=== PATIENT | female | born 1960 | race Caucasian/White ===

== ENCOUNTER 2018-11-26 12:53 | Outpatient (CLI) | payer BC | END 2018-11-26 23:59 | disposition home or self-care (01) | LOC: CARD DIAG 12:53 | PROVIDERS: ATTEND Internal Medicine Cardiovascular Disease | DX: I34.8 Other nonrheumatic mitral valve disorders (principal); I48.91 Unspecified atrial fibrillation | CPT/HCPCS: 93306 ==

== ENCOUNTER 2020-11-06 15:19 | Inpatient (IN) | payer BC ==
[~2020-11-06] VITALS: Ht 170.2 cm; Wt 103.6 kg
[2020-11-06 16:14] LABS: BASOPHILS # (AUTO) 0.1 X10'3 (0-0.2); BASOPHILS % (AUTO) 0.7 % (0-1); EOSINOPHILS % (AUTO) 0.1 % (0-6); HEMATOCRIT 37.5 % (35.0-45.0); HEMOGLOBIN 12.8 g/dl (12.0-16.0); LYMPHOCYTES # (AUTO) 0.7 X10'3 (1.1-4.8); LYMPHOCYTES % (AUTO) 4.9 % (21-51); MEAN CORPUSCULAR HEMOGLOBIN 31.4 PG (27.0-31.0); MEAN CORPUSCULAR HGB CONC 34.1 g/dL (33.0-36.5); MEAN CORPUSCULAR VOLUME 92.2 FL (78-98); MEAN PLATELET VOLUME 8.3 FL (7.4-10.4); MONOCYTES # (AUTO) 0.8 X10'3 (0-0.9); MONOCYTES % (AUTO) 5.6 % (2-12); NEUTROPHILS # (AUTO) 12.4 X10'3 (1.8-7.7); NEUTROPHILS % (AUTO) 88.7 % (42-75); PLATELET COUNT 251 X10'3 (140-440); RED BLOOD COUNT 4.07 X10'6 (4.20-5.60); RED CELL DISTRIBUTION WIDTH 12.3 % (11.5-14.5); WHITE BLOOD COUNT 13.9 X10'3 (4.5-11.0)
[2020-11-06] MEDS ORDERED: diltiazem 5mg/ml 5ml inj. IV ONE ×2 (16:20→17:30)
[2020-11-06 16:25] LABS: ALANINE AMINOTRANSFERASE 33 U/L (12-78); ALBUMIN 3.1 G/DL (3.4-5.0); ALBUMIN/GLOBULIN RATIO 0.8 (1.1-1.5); ALKALINE PHOSPHATASE 89 IU/L (46-116); ANION GAP 12 (8-16); ASPARTATE AMINO TRANSFERASE 27 U/L (10-37); BILIRUBIN,TOTAL 0.5 MG/DL (0.1-1.0); BLOOD UREA NITROGEN 18 MG/DL (7-18); BUN/CREATININE RATIO 20.2 (6.6-38.0); CALCIUM 8.6 MG/DL (8.5-10.1); CHLORIDE 104 MMOL/L (99-107); CREATININE 0.89 MG/DL (0.40-0.90); GLUCOSE 125 MG/DL (70-104); POTASSIUM 4.2 MMOL/L (3.5-5.1); SODIUM 137 MMOL/L (135-145); TOTAL CARBON DIOXIDE 20.7 MMOL/L (24-32); TOTAL PROTEIN 7.2 G/DL (6.4-8.2); eGFR 64 ML/MIN
[2020-11-06 16:31] LABS: MAGNESIUM 1.8 MG/DL (1.5-2.4)
[2020-11-06] MEDS ORDERED: morphine 4 MG/ML inj SYRINge IV ONE (16:55)
[2020-11-06] MEDS ORDERED: iohexol 350MG/ML 100ml bottle IV ONE (17:02)
[2020-11-06] MEDS ORDERED: aspirin 81mg tab.chew PO ONE (17:30)
--- NOTE | 2020-11-06 18:05 | NUR ---
spoke to Dr Echevarria re: pt HR still 131, she will put in orders
--- NOTE | 2020-11-06 18:48 | NUR ---
Patient resting comfortably on gurney, reports minimal chest pain 4/10 only when she takes a deep breath.
[2020-11-06] MEDS ORDERED: OMEP20TA23 PO (19:33)
[2020-11-06] MEDS ORDERED: FOLI0.4T6 PO (19:33)
[2020-11-06] MEDS ORDERED: TRAZ-256 PO (19:33)
[2020-11-06] MEDS ORDERED: LOP12.5T PO (19:33)
[2020-11-06] MEDS ORDERED: FLEC100T35 PO (19:33)
[2020-11-06] MEDS ORDERED: ETAN50PE3 SUBCUT (19:33)
[2020-11-06] MEDS ORDERED: ESTR0.6216 PO (19:33)
[2020-11-06] MEDS ORDERED: TIZA4CAP PO (19:33)
[2020-11-06] MEDS ORDERED: METH2.5T PO (19:33)
[2020-11-06] MEDS ORDERED: APIX5TAB3 PO (19:33)
[2020-11-06] MEDS ORDERED: HYDR200T84 PO (19:33)
[2020-11-06] MEDS ORDERED: mag hydrox/Alum hydrox/simeth 30ml oral suspension PO PRN (19:55)
[2020-11-06] MEDS ORDERED: TIZANIDINE HCL PO PRN (19:55)
[2020-11-06] MEDS ORDERED: magnesium hydroxide 30ml (MOM) UD suspension PO PRN (19:55)
[2020-11-06] MEDS ORDERED: ondansetron/PF 4mg/2ml inj IV PRN (19:55)
[2020-11-06] MEDS ORDERED: potassium Cl 20 mEq SR tablet PO PRN ×2 (19:55)
[2020-11-06] MEDS ORDERED: potassium Cl 40MEQ/1/2NS 520ml 520 ML IV PRN ×2 (19:55)
[2020-11-06] MEDS: K and/or MAG REPLACEMENT MC SCH (20:00)
[2020-11-06] MEDS ORDERED: tizanidine 4mg tablet PO PRN (20:10)
[2020-11-06 21:00] VITALS: BP 106/49
[2020-11-06] MEDS: traZODone 50mg tablet PO SCH (21:31)
[2020-11-06] MEDS: hydroxychloroquine 200mg tablet PO SCH (21:32)
[2020-11-06] MEDS: diltiazem 30mg tablet PO SCH (21:33)
[2020-11-06] MEDS: apixaban 5mg tablet PO SCH (21:33)
[2020-11-06] MEDS: flecainide 50mg tablet PO SCH (21:33)
--- NOTE | 2020-11-06 23:01 | NUR ---
Patient in room PCU 3027. I have received report from Dana PEDRAZA and had the opportunity to ask questions and assume patient care.
[2020-11-07 02:00] VITALS: BP 118/54
[2020-11-07] MEDS: diltiazem 30mg tablet PO SCH ×4 (02:04→19:24)
[2020-11-07] MEDS: acetaminophen 325mg tablet PO PRN ×3 (02:10→22:09)
[2020-11-07 03:50] LABS: BASOPHILS # (AUTO) 0.1 X10'3 (0-0.2); BASOPHILS % (AUTO) 0.8 % (0-1); EOSINOPHILS # (AUTO) 0.1 X10'3 (0-0.9); EOSINOPHILS % (AUTO) 0.7 % (0-6); HEMATOCRIT 34.5 % (35.0-45.0); HEMOGLOBIN 11.7 g/dl (12.0-16.0); LYMPHOCYTES # (AUTO) 1.8 X10'3 (1.1-4.8); LYMPHOCYTES % (AUTO) 10.9 % (21-51); MEAN CORPUSCULAR HEMOGLOBIN 31.6 PG (27.0-31.0); MEAN CORPUSCULAR HGB CONC 33.8 g/dL (33.0-36.5); MEAN CORPUSCULAR VOLUME 93.4 FL (78-98); MEAN PLATELET VOLUME 8.5 FL (7.4-10.4); MONOCYTES # (AUTO) 1.4 X10'3 (0-0.9); MONOCYTES % (AUTO) 8.6 % (2-12); NEUTROPHILS # (AUTO) 12.8 X10'3 (1.8-7.7); PLATELET COUNT 217 X10'3 (140-440); RED CELL DISTRIBUTION WIDTH 12.6 % (11.5-14.5); WHITE BLOOD COUNT 16.2 X10'3 (4.5-11.0)
[2020-11-07 04:03] LABS: ALANINE AMINOTRANSFERASE 35 U/L (12-78); ALBUMIN 2.6 G/DL (3.4-5.0); ALBUMIN/GLOBULIN RATIO 0.7 (1.1-1.5); ALKALINE PHOSPHATASE 96 IU/L (46-116); ANION GAP 8 (8-16); ASPARTATE AMINO TRANSFERASE 25 U/L (10-37); BILIRUBIN,TOTAL 0.5 MG/DL (0.1-1.0); BLOOD UREA NITROGEN 16 MG/DL (7-18); BUN/CREATININE RATIO 17.6 (6.6-38.0); CALCIUM 8.2 MG/DL (8.5-10.1); CHLORIDE 105 MMOL/L (99-107); CREATININE 0.91 MG/DL (0.40-0.90); GLUCOSE 119 MG/DL (70-104); SODIUM 138 MMOL/L (135-145); TOTAL CARBON DIOXIDE 25.1 MMOL/L (24-32); TOTAL PROTEIN 6.6 G/DL (6.4-8.2); eGFR 63 ML/MIN
[2020-11-07] MEDS ORDERED: diltiazem 5mg/ml 5ml inj. IV ONE (05:25)
[2020-11-07 05:28] VITALS: BP 117/74
--- NOTE | 2020-11-07 05:45 | NUR ---
Patient converted from SR to afib RVR in the 120-140's at 0515. Notified Dr. Garcia who ordered cardizem bolus 10mg and to repeat dose in 20 minutes if heart rate above 100.
[2020-11-07] MEDS: diltiazem 5mg/ml 5ml inj. IV PRN (06:01)
--- NOTE | 2020-11-07 06:29 | NUR ---
Problems reprioritized. Patient report given, questions answered & plan of care reviewed with Jose Angel.
--- NOTE | 2020-11-07 06:30 | NUR ---
Patient in room PCU 3027. I have received report from Alpesh PEDRAZA and had the opportunity to ask questions and assume patient care.
[2020-11-07 07:00] VITALS: BP 100/76
[2020-11-07] MEDS: K and/or MAG REPLACEMENT MC SCH ×2 (08:00→19:25)
[2020-11-07] MEDS ORDERED: ETANERCEPT SQ SCH (08:00)
[2020-11-07] MEDS: apixaban 5mg tablet PO SCH ×2 (08:27→19:25)
[2020-11-07] MEDS: flecainide 50mg tablet PO SCH ×2 (08:30→19:24)
[2020-11-07] MEDS: folic acid 0.4mg tablet PO SCH (08:30)
[2020-11-07] MEDS: pantoprazole 40mg Tablet.DR PO SCH (08:30)
[2020-11-07] MEDS: metoprolol tartrate 12.5mg (1/2 tablet) PO SCH (08:31)
[2020-11-07] MEDS: hydroxychloroquine 200mg tablet PO SCH ×2 (08:31→19:24)
[2020-11-07] MEDS: estrogen, conjugated 0.625mg tablet PO SCH (08:32)
--- NOTE | 2020-11-07 10:48 | NUR ---
PAGER ID: [phone] MESSAGE: Re: PhillipRadhaa. Room: [facility]. Pt's HR is consistent in the 120-130's A-fib. -[facility] #[id number] -Dr. Franz paged concerning Pt's heart rate.
[2020-11-07 11:00] VITALS: BP 107/76
[2020-11-07] MEDS ORDERED: tizanidine 4mg tablet PO PRN (14:51)
--- NOTE | 2020-11-07 18:16 | NUR ---
Problems reprioritized. Patient report given, questions answered & plan of care reviewed with Alpesh RN.
[2020-11-07 19:00] VITALS: BP 121/52
[2020-11-07 22:00] VITALS: BP 124/60
[2020-11-07] MEDS: traZODone 50mg tablet PO SCH (22:10)
[2020-11-08 02:00] VITALS: BP 112/50
[2020-11-08] MEDS: diltiazem 30mg tablet PO SCH ×4 (02:27→20:24)
[2020-11-08 06:09] LABS: BASOPHILS # (AUTO) 0.1 X10'3 (0-0.2); BASOPHILS % (AUTO) 0.6 % (0-1); EOSINOPHILS # (AUTO) 0.3 X10'3 (0-0.9); EOSINOPHILS % (AUTO) 2.3 % (0-6); HEMATOCRIT 35.2 % (35.0-45.0); HEMOGLOBIN 11.7 g/dl (12.0-16.0); LYMPHOCYTES # (AUTO) 1.8 X10'3 (1.1-4.8); LYMPHOCYTES % (AUTO) 16.1 % (21-51); MEAN CORPUSCULAR HEMOGLOBIN 31.2 PG (27.0-31.0); MEAN CORPUSCULAR HGB CONC 33.3 g/dL (33.0-36.5); MEAN CORPUSCULAR VOLUME 93.7 FL (78-98); MEAN PLATELET VOLUME 8.8 FL (7.4-10.4); MONOCYTES # (AUTO) 1.1 X10'3 (0-0.9); MONOCYTES % (AUTO) 9.7 % (2-12); NEUTROPHILS # (AUTO) 7.9 X10'3 (1.8-7.7); NEUTROPHILS % (AUTO) 71.3 % (42-75); PLATELET COUNT 254 X10'3 (140-440); RED BLOOD COUNT 3.76 X10'6 (4.20-5.60); RED CELL DISTRIBUTION WIDTH 12.3 % (11.5-14.5); WHITE BLOOD COUNT 11.1 X10'3 (4.5-11.0)
[2020-11-08 06:30] VITALS: BP 106/40
--- NOTE | 2020-11-08 06:30 | NUR ---
Patient in room U 3027. I have received report from JORGE L PEDRAZA and had the opportunity to ask questions and assume patient care. PT SLEEPING, CALL LIGHT IN REACH. NO DISTRESS. Addendum: 11/08/20 at 0742 by Katie Reddy RN Amended: Links added.
[2020-11-08 06:34] LABS: ALANINE AMINOTRANSFERASE 37 U/L (12-78); ALBUMIN 2.6 G/DL (3.4-5.0); ALBUMIN/GLOBULIN RATIO 0.6 (1.1-1.5); ALKALINE PHOSPHATASE 96 IU/L (46-116); ANION GAP 8 (8-16); ASPARTATE AMINO TRANSFERASE 27 U/L (10-37); BILIRUBIN,TOTAL 0.5 MG/DL (0.1-1.0); BLOOD UREA NITROGEN 11 MG/DL (7-18); BUN/CREATININE RATIO 12.8 (6.6-38.0); CALCIUM 8.7 MG/DL (8.5-10.1); CHLORIDE 107 MMOL/L (99-107); CREATININE 0.86 MG/DL (0.40-0.90); GLUCOSE 111 MG/DL (70-104); POTASSIUM 3.9 MMOL/L (3.5-5.1); SODIUM 142 MMOL/L (135-145); TOTAL CARBON DIOXIDE 27.5 MMOL/L (24-32); TOTAL PROTEIN 6.8 G/DL (6.4-8.2); eGFR 67 ML/MIN
[2020-11-08] MEDS: K and/or MAG REPLACEMENT MC SCH ×2 (08:00→20:00)
[2020-11-08] MEDS: flecainide 50mg tablet PO SCH ×2 (08:00→20:26)
[2020-11-08] MEDS: apixaban 5mg tablet PO SCH ×2 (08:00→20:25)
[2020-11-08] MEDS: pantoprazole 40mg Tablet.DR PO SCH (08:01)
[2020-11-08] MEDS: estrogen, conjugated 0.625mg tablet PO SCH (08:03)
[2020-11-08] MEDS: folic acid 0.4mg tablet PO SCH (08:03)
[2020-11-08] MEDS: metoprolol tartrate 12.5mg (1/2 tablet) PO SCH (08:04)
[2020-11-08] MEDS: hydroxychloroquine 200mg tablet PO SCH ×2 (09:14→20:26)
[2020-11-08] MEDS: diltiazem 5mg/ml 5ml inj. IV PRN (09:18)
[2020-11-08 11:00] VITALS: BP 102/59
[2020-11-08] MEDS ORDERED: metoprolol tartrate 1mg/ml inj IV PRN (12:05)
[2020-11-08] MEDS ORDERED: diltiazem 5mg/ml 5ml inj. IV ONE (12:05)
[2020-11-08] MEDS ORDERED: colchicine 0.6mg tablet PO ONE (12:50)
--- NOTE | 2020-11-08 13:45 | NUR ---
Problems reprioritized. Patient report given, questions answered & plan of care reviewed with MEGHAN PEDRAZA. PT DENIES NEEDS. CALL LIGHT IN REACH Addendum: 11/08/20 at 1346 by Katie Reddy RN Amended: Links added.
[2020-11-08] MEDS ORDERED: ondansetron 4mg rapidly disintigrating tab PO PRN (14:15)
[2020-11-08 17:07] VITALS: BP 106/56
[2020-11-08 18:00] VITALS: BP 107/46
--- NOTE | 2020-11-08 18:56 | NUR ---
Patient in room PCU 3027. I have received report from KEILA Pride and had the opportunity to ask questions and assume patient care.
[2020-11-08] MEDS: traZODone 50mg tablet PO SCH (20:26)
[2020-11-08] MEDS: colchicine 0.6mg tablet PO SCH (20:30)
[2020-11-08 22:00] VITALS: BP 103/50
[2020-11-09 02:00] VITALS: BP 133/59
[2020-11-09] MEDS: diltiazem 30mg tablet PO SCH ×4 (02:18→20:48)
--- NOTE | 2020-11-09 06:39 | NUR ---
Problems reprioritized. Patient report given, questions answered & plan of care reviewed with KEILA Pride.
[2020-11-09 07:15] VITALS: BP 134/49
[2020-11-09] MEDS: K and/or MAG REPLACEMENT MC SCH ×2 (07:26→20:00)
[2020-11-09 07:37] LABS: BASOPHILS # (AUTO) 0.1 X10'3 (0-0.2); BASOPHILS % (AUTO) 0.9 % (0-1); EOSINOPHILS # (AUTO) 0.2 X10'3 (0-0.9); EOSINOPHILS % (AUTO) 1.4 % (0-6); HEMOGLOBIN 11.8 g/dl (12.0-16.0); LYMPHOCYTES # (AUTO) 1.6 X10'3 (1.1-4.8); LYMPHOCYTES % (AUTO) 13.7 % (21-51); MEAN CORPUSCULAR HEMOGLOBIN 31.5 PG (27.0-31.0); MEAN CORPUSCULAR HGB CONC 33.6 g/dL (33.0-36.5); MEAN CORPUSCULAR VOLUME 93.9 FL (78-98); MEAN PLATELET VOLUME 9.4 FL (7.4-10.4); MONOCYTES % (AUTO) 8.7 % (2-12); NEUTROPHILS # (AUTO) 8.8 X10'3 (1.8-7.7); NEUTROPHILS % (AUTO) 75.3 % (42-75); PLATELET COUNT 320 X10'3 (140-440); RED BLOOD COUNT 3.73 X10'6 (4.20-5.60); RED CELL DISTRIBUTION WIDTH 12.4 % (11.5-14.5); WHITE BLOOD COUNT 11.7 X10'3 (4.5-11.0)
[2020-11-09 08:01] LABS: ALANINE AMINOTRANSFERASE 34 U/L (12-78); ALBUMIN 2.6 G/DL (3.4-5.0); ALBUMIN/GLOBULIN RATIO 0.6 (1.1-1.5); ALKALINE PHOSPHATASE 104 IU/L (46-116); ANION GAP 10 (8-16); ASPARTATE AMINO TRANSFERASE 25 U/L (10-37); BILIRUBIN,TOTAL 0.5 MG/DL (0.1-1.0); BLOOD UREA NITROGEN 12 MG/DL (7-18); BUN/CREATININE RATIO 12.6 (6.6-38.0); CALCIUM 8.6 MG/DL (8.5-10.1); CHLORIDE 104 MMOL/L (99-107); CREATININE 0.95 MG/DL (0.40-0.90); GLUCOSE 112 MG/DL (70-104); SODIUM 140 MMOL/L (135-145); TOTAL CARBON DIOXIDE 26.5 MMOL/L (24-32); TOTAL PROTEIN 7.1 G/DL (6.4-8.2); eGFR 60 ML/MIN
[2020-11-09] MEDS: hydroxychloroquine 200mg tablet PO SCH ×2 (08:16→20:48)
[2020-11-09] MEDS: metoprolol tartrate 12.5mg (1/2 tablet) PO SCH (08:16)
[2020-11-09] MEDS: colchicine 0.6mg tablet PO SCH ×2 (08:17→20:55)
[2020-11-09] MEDS: estrogen, conjugated 0.625mg tablet PO SCH (08:17)
[2020-11-09] MEDS: folic acid 0.4mg tablet PO SCH (08:17)
[2020-11-09] MEDS: pantoprazole 40mg Tablet.DR PO SCH (08:17)
[2020-11-09] MEDS: apixaban 5mg tablet PO SCH ×2 (08:17→20:48)
[2020-11-09] MEDS: flecainide 50mg tablet PO SCH ×2 (08:17→20:48)
[2020-11-09] MEDS ORDERED: flecainide 50mg tablet PO SCH (09:43)
[2020-11-09 12:29] VITALS: BP 102/48
[2020-11-09 17:20] VITALS: BP 99/55
[2020-11-09 18:00] VITALS: BP 123/58
--- NOTE | 2020-11-09 18:24 | NUR ---
Patient in room PCU 3027. I have received report from Shannen PEDRAZA and had the opportunity to ask questions and assume patient care.
[2020-11-09] MEDS: traZODone 50mg tablet PO SCH (20:49)
[2020-11-09 22:00] VITALS: BP 123/49
--- NOTE | 2020-11-09 22:30 | NUR ---
Problems reprioritized. Patient report given, questions answered & plan of care reviewed with Juma PEDRAZA.
[2020-11-10 07:23] VITALS: BP 119/48
[2020-11-10 07:36] LABS: BASOPHILS # (AUTO) 0.1 X10'3 (0-0.2); BASOPHILS % (AUTO) 0.5 % (0-1); EOSINOPHILS # (AUTO) 0.2 X10'3 (0-0.9); EOSINOPHILS % (AUTO) 1.7 % (0-6); HEMATOCRIT 34.9 % (35.0-45.0); HEMOGLOBIN 11.9 g/dl (12.0-16.0); LYMPHOCYTES # (AUTO) 1.9 X10'3 (1.1-4.8); LYMPHOCYTES % (AUTO) 15.7 % (21-51); MEAN CORPUSCULAR HGB CONC 34.1 g/dL (33.0-36.5); MEAN CORPUSCULAR VOLUME 93.8 FL (78-98); MONOCYTES # (AUTO) 1.3 X10'3 (0-0.9); MONOCYTES % (AUTO) 10.8 % (2-12); NEUTROPHILS # (AUTO) 8.5 X10'3 (1.8-7.7); NEUTROPHILS % (AUTO) 71.3 % (42-75); PLATELET COUNT 374 X10'3 (140-440); RED BLOOD COUNT 3.72 X10'6 (4.20-5.60); RED CELL DISTRIBUTION WIDTH 12.2 % (11.5-14.5); WHITE BLOOD COUNT 11.9 X10'3 (4.5-11.0)
[2020-11-10 07:51] LABS: ALANINE AMINOTRANSFERASE 43 U/L (12-78); ALBUMIN 2.7 G/DL (3.4-5.0); ALBUMIN/GLOBULIN RATIO 0.6 (1.1-1.5); ALKALINE PHOSPHATASE 115 IU/L (46-116); ANION GAP 8 (8-16); ASPARTATE AMINO TRANSFERASE 30 U/L (10-37); BILIRUBIN,TOTAL 0.6 MG/DL (0.1-1.0); BLOOD UREA NITROGEN 14 MG/DL (7-18); BUN/CREATININE RATIO 15.2 (6.6-38.0); CHLORIDE 104 MMOL/L (99-107); CREATININE 0.92 MG/DL (0.40-0.90); GLUCOSE 114 MG/DL (70-104); POTASSIUM 3.6 MMOL/L (3.5-5.1); SODIUM 139 MMOL/L (135-145); TOTAL CARBON DIOXIDE 26.9 MMOL/L (24-32); TOTAL PROTEIN 7.3 G/DL (6.4-8.2); eGFR 62 ML/MIN
[2020-11-10] MEDS: flecainide 50mg tablet PO SCH (07:54)
[2020-11-10] MEDS: estrogen, conjugated 0.625mg tablet PO SCH (07:54)
[2020-11-10] MEDS: apixaban 5mg tablet PO SCH (07:54)
[2020-11-10] MEDS: hydroxychloroquine 200mg tablet PO SCH (07:54)
[2020-11-10] MEDS: colchicine 0.6mg tablet PO SCH (07:54)
[2020-11-10] MEDS: pantoprazole 40mg Tablet.DR PO SCH (07:54)
[2020-11-10] MEDS: metoprolol tartrate 12.5mg (1/2 tablet) PO SCH (07:55)
[2020-11-10] MEDS: folic acid 0.4mg tablet PO SCH (07:55)
[2020-11-10] MEDS ORDERED: diltiazem CD 120mg capsule (once-daily) PO SCH (08:00)
[2020-11-10] MEDS: K and/or MAG REPLACEMENT MC SCH (08:00)
--- NOTE | 2020-11-10 09:17 | NUR ---
PAGER ID: [phone] MESSAGE: [phone] ELYSE MINER PATIENT WOULD LIKE TO GO HOME TODAY. SHE HAS REMAINED IN SR FOR 48HOURS AND IS TOLERATING THE INCREASED DOSE OF FLECAINIDE. NO NEED TO CALL BACK, I JUST WANTED YOU TO KNOW. MEGHAN [id number]
[2020-11-10] MEDS ORDERED: COL0.6T PO (10:38)
[2020-11-10] MEDS ORDERED: TAM50T PO (10:38)
[2020-11-10] MEDS ORDERED: CARCD120C PO (10:38)
--- NOTE | 2020-11-10 11:10 | NUR ---
pt was given dc instructions. pt verbalized understanding of dc instructions. IV was dc in tact, heart monitor removed and assisted pt in getting dress. pt is in zero distress
[2020-11-10] MEDS ORDERED: FLEC100T2 PO (11:16)
[2020-11-10] MEDS ORDERED: METO50TA16 PO (11:16)
[2020-11-10 11:54] VITALS: BP 110/57
--- NOTE | 2020-11-10 12:00 | NUR ---
PAGER ID: [phone] MESSAGE: [phone] ELYSE MINER. HER PRESCRIPTION FOR FLECAINIDE WAS SENT IN FOR 100MG BID, SHE WAS RECEIVING 200 MG BID HERE. SHOULD THE PRESCRIPTION BE 100 MG OR 200 MG BID MEGHAN [id number]
== END 2020-11-10 13:00 | disposition home or self-care (01) | DRG 281 ==
LOC: ER 15:19 → ED HOLD 19:51 → PCU 3S 20:44
PROVIDERS: ADMIT Internal Medicine; ATTEND Internal Medicine
PROC: B32T1ZZ Computerized Tomography (CT Scan) of Left Pulmonary Artery using Low Osmolar Contrast (ICD-10-PCS; principal; 2020-11-06)
PROC: B3201ZZ Computerized Tomography (CT Scan) of Thoracic Aorta using Low Osmolar Contrast (ICD-10-PCS; 2020-11-06)
PROC: B32S1ZZ Computerized Tomography (CT Scan) of Right Pulmonary Artery using Low Osmolar Contrast (ICD-10-PCS; 2020-11-06)
DX: I48.0 Paroxysmal atrial fibrillation (principal); I21.A1 Myocardial infarction type 2; I31.3 Pericardial effusion (noninflammatory); D72.823 Leukemoid reaction; I10 Essential (primary) hypertension; K21.9 Gastro-esophageal reflux disease without esophagitis; M06.9 Rheumatoid arthritis, unspecified; Z79.01 Long term (current) use of anticoagulants; Z80.3 Family history of malignant neoplasm of breast; Z82.3 Family history of stroke; Z90.710 Acquired absence of both cervix and uterus; Z88.0 Allergy status to penicillin; Z88.2 Allergy status to sulfonamides; Z88.1 Allergy status to other antibiotic agents; Z88.5 Allergy status to narcotic agent; Z88.8 Allergy status to other drugs, medicaments and biological substances; Z79.899 Other long term (current) drug therapy
CPT/HCPCS: 36415; 71045; 71275; 80053; 83735; 83880; 84484; 85025; 85610; 85651; 87081; 93005; 93306; 93308; 96374; 96375; 99285; G0378; J2270; J3490; Q9967